=== PATIENT | male | born 1955 | race Caucasian/White ===

== ENCOUNTER 2023-08-11 05:47 | Day surgery (SDC) | payer MEDICARE, OTHER, SELFPAY ==
--- NOTE | 2023-08-10 07:30 | COLBX_PTH ---
PATIENT: REDD CARDONA LOC: EN U#:[id number] AGE/SX: 68/M ROOM: RE08/11/[address]: Dr. Radha Etienne MD : 1955 BED: DIS: 08/11/2023 SPEC #: [id number] RECD: 08/11/23 12:07 STATUS: TRACY LISSY #: [id number] SABRA: 08/10/23 07:[address]: Radha Etienne DEPT: SURGICAL PATHOLOGY RECD BY: Suellen Sung ENTERED: 08/11/23 12:08 SP TYPE: COLON BX OTHR DR: Dr. Wilder Luna MD Tissues: A - Gastric mucous membrane B - Gastric mucous membrane C - COLON BIOPSY D - Cecum, NOS E - Rectum, NOS Procedures: Surgery Specimen Level IV HEADER OPERATION: Colonoscopy with biopsy, EGD with biopsy, polypectomy PRE-OP DIAGNOSIS: GERD, colon polyp TISSUE SUBMITTED: A - Gastric antrum biopsy, H. pylori and path, B - Gastric body polyp, H. pylori and path, C - Polyp ascending colon x3, D - Cecum polyp biopsy x2, E - Polyp rectum biopsy MICROSCOPIC DIAGNOSIS A. Gastric antrum, biopsy: Chronic gastritis. See comment. B. Gastric body, biopsy: Fundic gland polyp. See comment. C. Ascending colon polyp, biopsy: Fragments of tubular adenoma. D. Cecal polyp, biopsy: Fragments of tubular adenoma. E. Rectal polyp, biopsy: Polypoid fragment of benign colonic mucosa with acute and chronic inflammation. AM:ernesto 08/12/2023 COMMENT A & B. The results of immunohistochemistry for Helicobacter pylori will be reported separately ([id number]). MICROSCOPIC DESCRIPTION Slides are reviewed. GROSS DESCRIPTION A - Received in fixative is one container labeled with the patient's name and designated gastric antrum. The specimen consists of one irregular fragment of light rivers soft tissue that measures 0.6 x 0.2 x 0.1 cm. The specimen is totally submitted in one cassette. B - Received in fixative is one container labeled with the patient's name and designated gastric polyp. The specimen consists of a polypoid fragment of rivers tissue measuring 1.0 x 0.8 x 0.6 cm. The specimen is bisected and totally submitted in one cassette. C - Received in fixative is one container labeled with the patient's name and designated ascending colon polyp. The specimen consists of multiple irregular fragments of light rivers soft tissue that in aggregate measure 1.0 x 0.6 x 0.1 cm. The specimen is totally submitted in one cassette. D - Received in fixative is one container labeled with the patient's name and designated cecal polyp. The specimen consists of multiple irregular fragments of light rivers soft tissue that in aggregate measure 1.0 x 0.3 x 0.1 cm. The specimen is totally submitted in one cassette. E - Received in fixative is one container labeled with the patient's name and designated rectal polyp. The specimen consists of one irregular fragment of light rivers soft tissue that measures 0.3 x 0.3 x 0.1 cm. The specimen is totally submitted in one cassette. / AM:ernesto 08/11/2023 TC:2 CPT: 12897 x5
[2023-08-11] VITALS (7 sets, daily range): BP systolic 110–123; BP diastolic 81–94; PULSE 90–95; RESP 16; TEMP 36.3–36.9; O2SAT 88–100; BMI 29.0
[2023-08-11] MEDS: Lactated Ringers 1,000 ML 15 ML IV (06:21)
--- NOTE | 2023-08-11 07:13 | HP.PCM_ITS ---
HPI - General HPI Narrative REDD CARDONA, is a 68 M who presents for an EGD and colonoscopy. Patient states his left lower quadrant pain did improve after having the Carafate. Patient also states has not really been having dysphagia. On the Protonix. Patient has bowel movements every other day denies any blood. office visit 06/24/23 HPI HPI: 67-year-old male presents due to EGD and colonoscopy. Patient states he has been having some issues with dysphagia states mostly larger pills seem to get caught in his very proximal esophagus/oral pharyngeal area. Patient states he can have some issues with need to if he does not chew well. Patient states if something does get stuck he does need to typically vomit to get removed. Patient does take Protonix 40 mg p.o. daily for reflux?previous last year patient was on Prilosec but was not working as well as it used to. Patient states the burning in the esophagus is controlled with the Protonix currently. Patient had a modified barium swallow in November 2022 so there is a mild delay in esophageal emptying facilitated with warm liquid. No obstruction or stricture or dilatation was seen. Patient last EGD and colonoscopy was December 2021 he had a couple tubular adenomas recommend follow-up colonoscopy recommended in 1 year possibly due to piecemeal removal of one of them. EGD showed GERD, gastric polyps, hiatal hernia per report?biopsy of gastric polyp showed a fundic gland polyp. Patient also states he has had some issues of left lower quadrant pain. Patient had diverticulitis diagnosed about a month after his EGD and colonoscopy. Patient never had diverticulitis prior to that. Patient does state that he thinks he had a lot of corn prior to the diverticulitis. Patient was put on antibiotics per the ER at that time. Patient also states that he does have some Cipro on hand due to his prostate and urinary tract infection so when he does have occasional left lower quadrant pain he has been taking that for 1 to 2 days. Patient states that the left lower quadrant pain only lasts like 1 to 2 hours describes it more of a pressure which can happen off-and-on for 2 to 3 days and then it resolves. Patient's first diverticulitis was diagnosed with a CT abdomen pelvis in January 2022 at [place]. Patient states he has bowel about every 2 days. [facility] Medical History (Updated 08/07/23 @ 14:04 by Leticia Perez) Anxiety Arthritis BPH (benign prostatic hyperplasia) Colon polyps CPAP (continuous positive airway pressure) dependence Depression Dysphagia Gastric reflux High cholesterol History of diverticulitis Hypothyroid Injury of back LLQ abdominal pain Seasonal allergies Sleep apnea Thyroid disease Wears glasses Wears hearing aid Home Medications atorvastatin 40 mg tablet 40 mg PO DAILY 06/24/23 [History Last Taken Unknown] cetirizine 10 mg capsule (Zyrtec) 10 mg PO DAILY allergy symptoms 06/24/23 [History Last Taken Unknown] ciprofloxacin HCl 500 mg tablet 500 mg PO DAILY PRN URINE INFECTION 06/24/23 [History Last Taken Unknown] levothyroxine 88 mcg tablet (Synthroid) 88 mcg PO DAILY 06/24/23 [History Last Taken 08/11/23] pantoprazole 40 mg tablet,delayed release 40 mg PO DAILY 06/24/23 [History Last Taken Unknown] tamsulosin 0.4 mg capsule 0.4 mg PO BID 06/24/23 [History Last Taken Unknown] Allergy/AdvReac Type Severity Reaction Status Date / Time wool Allergy Severe Rash Verified 08/11/23 06:15 Surgical History (Updated 06/24/23 @ 09:11 by Lennie Amor) History of back surgery S/P trigger finger release Social History (Updated 06/24/23 @ 09:12 by Lennie Amor) Smoking Status: Never smoker alcohol intake: never Past Medical/Surgical History Planned Operation Planned Operative Procedure/s: COLONOSCOPY/EGD Previous Hospitalizations/Surgeries HX Hospitalizations: No Any Problems With Anesthesia: No You/Your Family Experience Fever (Hyperthermia) With Anes: No Cholinesterase deficiency: No Cardiovascular Hx Hypertension: No Respiratory Hx Sleep Apnea: No Hx Respiratory Tract Infection/Cold (presently): No Do You Snore Loudly (louder than talking or can be heard): No Do You Often Feel Tired/ Fatigued/ Sleepy Dring Daytime?: No Has Anyone Observed You Stop Breathing During Sleep?: No Result (for STOP score): Negative Smoking Status: Never smoker Neurological Does patient have nerve stimulator: No Miscellaneous Recent Exposure to Contagious Disease: No Allergies wool Allergy (Severe, Verified 08/11/23 06:15) Rash Discharge Is Pt Admitted From a Alf, or a [place] [facility]: No After D/C, Where Do you Plan to Go: Return Home Vital Signs Vital Signs Vital Signs: 08/11/23 06:19 08/11/23 06:19 Temperature 98 F Temperature Source Temporal Pulse Rate 95 Respiratory Rate 16 Respiratory Pattern Normal Blood Pressure 117/87 H Blood Pressure Mean 97 Blood Pressure Source Monitor Blood Pressure Position Semi-Fowlers Blood Pressure Location Right Arm Pulse Ox 95 Oxygen Delivery Method Room Air Weight Weight: 196 lb 3.382 oz Body Mass Index (BMI) 29.0 Physical Exam Const alert, oriented x3 and no apparent distress HEENT normocephalic and head/scalp atraumatic Resp normal respiratory effort Cardio regular rate GI soft to palpation and non-tender; Negative for non-distended Palpation: Negative for guarding Extremity no clubbing, cyanosis or edema Skin no rashes or lesions noted Neuro CN's II-XII intact bilaterally Psych mental status grossly normal Assessment & Plan Assessment/Plan (1) GERD (gastroesophageal reflux disease): (2) Colon polyps: Surgery Risks - Colonoscopy I discussed with the patient the risks of the procedure: Yes Risks Include but are not Limited To: Risks include but are not limited to: Bleeding, perforation requiring further surgery, inability to complete colonoscopy requiring barium enema.
--- NOTE | 2023-08-11 07:30 | IMM_PTH ---
PATIENT: REDD CARDONA LOC: EN U#:[id number] AGE/SX: 68/M ROOM: RE08/11/[address]: Dr. Radha Etienne MD : 1955 BED: DIS: 08/11/2023 SPEC #: [id number] RECD: 08/11/23 12:30 STATUS: TRACY REPool #: [id number] SABRA: 08/11/23 07:[address]: Radha Etienne DEPT: IMMUNOHISTOCHEMISTRY RECD BY: Laura Cueto ENTERED: 08/11/23 12:31 SP TYPE: IMMUNO OTHR DR: Dr. Wilder Luna MD Tissues: A - Stomach, NOS B - Stomach, NOS Procedures: H Pylori (initial) PHYSICIAN & [place] [id number] SPECIMEN INFORMATION: Tissue Source: A - Gastric antrum, B - Gastric body polyp Clinical Info: GERD, colon polyp Specimen Number: [id number] A & B CPT code: 48938 x2 METHODOLOGY: Deparaffinized sections of prefer/formalin-fixed tissue or PAP/DQ stained slides are incubated with monoclonal/polyclonal antibodies/oligonucleotide probes. Localization is made via biotin free immunoperoxidase method. Appropriate controls are performed and reacted as expected. Results on target cell population are indicated in the following table: RESULTS: ANTIBODY / CLONE RESULT Block A H Pylori (polyclonal) negative Block B H Pylori (polyclonal) negative These tests were developed and their performance characteristics determined by [facility]. They may not have been cleared or approved by the U.S. Food and Drug Administration. The FDA has determined that such clearance or approval is not necessary. The above immunohistochemical/dualISH markers are ordered and reviewed by the Pathologist. INTERPRETATION: A. Gastric antrum, biopsy: Negative for Helicobacter pylori organisms. B. Gastric body polyp, biopsy: Negative for Helicobacter pylori organisms. AM:ernesto 08/12/2023
--- NOTE | 2023-08-11 08:32 | OP.EGD_ITS ---
Patient Name: Toro Gleason Procedure Date: 08/11/2023 7:34 AM Date of : 1955 Age: 68 Procedure: Upper GI endoscopy Indications: Heartburn Providers: Radha Etienne MD Medicines: Monitored Anesthesia Care Patient Profile: This is a 68 year old male. Complications: No immediate complications. Procedure: Pre-Anesthesia Assessment: - Prior to the procedure, a History and Physical was performed, and patient medications and allergies were reviewed. The patient's tolerance of previous anesthesia was also reviewed. The risks and benefits of the procedure and the sedation options and risks were discussed with the patient. All questions were answered, and informed consent was obtained. Prior Anticoagulants: The patient has taken no anticoagulant or antiplatelet agents. ASA Grade Assessment: Per anesthesia. After reviewing the risks and benefits, the patient was deemed in satisfactory condition to undergo the procedure. After obtaining informed consent, the endoscope was passed under direct vision. Throughout the procedure, the patient's blood pressure, pulse, and oxygen saturations were monitored continuously. The Colonoscope was introduced through the mouth, and advanced to the second part of duodenum. The upper GI endoscopy was accomplished without difficulty. The patient tolerated the procedure well. Scope In: 7:40:40 AM Scope Out: 7:51:10 AM Total Procedure Duration Time 0 hours 10 minutes 30 seconds Findings: The Z-line was variable and was found 40 cm from the incisors. Striped mildly erythematous mucosa without bleeding was found in the gastric antrum. The examined duodenum was normal. A few 5 mm semi-pedunculated polyps with no bleeding and no stigmata of recent bleeding were found in the gastric body. The polyp was removed with a hot snare. Resection and retrieval were complete. Impression: - Z-line variable, 40 cm from the incisors. - Erythematous mucosa in the antrum. - Normal examined duodenum. - A few gastric polyps. Resected and retrieved. Recommendation: - Await pathology results. - Discharge patient to home (ambulatory). - Resume previous diet. - Continue present medications. Procedure Code(s): --- Professional --- 21814, Esophagogastroduodenoscopy, flexible, transoral; with removal of tumor(s), polyp(s), or other lesion(s) by snare technique Diagnosis Code(s): --- Professional --- K22.89, Other specified disease of esophagus K31.89, Other diseases of stomach and duodenum K31.7, Polyp of stomach and duodenum R12, Heartburn CPT copyright 2021 [employer]. All rights reserved. The codes documented in this report are preliminary and upon boat finisher review may be revised to meet current compliance requirements. MD Radha Mcclelland MD 08/11/2023 8:32:17 AM This report has been signed electronically. Number of Addenda: 0 Note Initiated On: 08/11/2023 7:34 AM
--- NOTE | 2023-08-11 08:32 | OP.CCLET_ITS ---
08/11/2023 Wilder Luna Re : Upper GI endoscopy procedure for Toro Wren Jeremy This procedure was performed on Friday, August 11, 2023. My impressions and recommendations are as follows: Impressions : - Z-line variable, 40 cm from the incisors. - Erythematous mucosa in the antrum. - Normal examined duodenum. - A few gastric polyps. Resected and retrieved. Recommendations : - Await pathology results. - Discharge patient to home (ambulatory). - Resume previous diet. - Continue present medications. My findings are described in the full procedure note, which is enclosed. If I can be of further assistance, please feel free to contact me at Doctor phone number(s): , Work: . Sincerely, MD Radha Mcclelland MD 08/11/2023 8:32:17 AM This report has been signed electronically.
--- NOTE | 2023-08-11 08:37 | OP.COLON_ITS ---
Patient Name: Toro Gleason Procedure Date: 08/11/2023 7:51 AM Date of : 1955 Age: 68 Procedure: Colonoscopy Indications: High risk colon cancer surveillance: Personal history of colonic polyps Providers: Radha Etienne MD Medicines: Monitored Anesthesia Care Patient Profile: This is a 68 year old male. Last Colonoscopy: December 2021. Complications: No immediate complications. Procedure: Pre-Anesthesia Assessment: - Prior to the procedure, a History and Physical was performed, and patient medications and allergies were reviewed. The patient's tolerance of previous anesthesia was also reviewed. The risks and benefits of the procedure and the sedation options and risks were discussed with the patient. All questions were answered, and informed consent was obtained. Prior Anticoagulants: The patient has taken no anticoagulant or antiplatelet agents. ASA Grade Assessment: Per anesthesia. After reviewing the risks and benefits, the patient was deemed in satisfactory condition to undergo the procedure. After I obtained informed consent, the scope was passed under direct vision. Throughout the procedure, the patient's blood pressure, pulse, and oxygen saturations were monitored continuously. The Colonoscope was introduced through the anus and advanced to the cecum, identified by the appendiceal orifice, ileocecal valve and palpation. The quality of the bowel preparation was good. Scope In: 7:52:41 AM Scope Withdrawal Time 0 hours 14 minutes 58 seconds Scope Out: 8:25:52 AM Total Procedure Duration Time 0 hours 33 minutes 11 seconds Findings: The perianal and digital rectal examinations were normal. A few small-mouthed diverticula were found in the sigmoid colon. Six sessile polyps were found in the rectum, ascending colon and cecum. The polyps were less than 5 mm in size. These polyps were removed with a cold biopsy forceps. Resection and retrieval were complete. The exam was otherwise without abnormality. Impression: - Diverticulosis in the sigmoid colon. - Six less than 5 mm polyps in the rectum, in the ascending colon and in the cecum, removed with a cold biopsy forceps. Resected and retrieved. - The examination was otherwise normal. Recommendation: - Discharge patient to home. - Resume previous diet. - Continue present medications. - Await pathology results. - Repeat colonoscopy in 2 years for surveillance based on pathology results. Procedure Code(s): --- Professional --- 90181, PT, Colonoscopy, flexible; with biopsy, single or multiple Diagnosis Code(s): --- Professional --- Z86.010, Personal history of colonic polyps D12.8, Benign neoplasm of rectum D12.2, Benign neoplasm of ascending colon D12.0, Benign neoplasm of cecum K57.30, Diverticulosis of large intestine without perforation or abscess without bleeding CPT copyright 2021 [place] [employer]. All rights reserved. The codes documented in this report are preliminary and upon cpc coder review may be revised to meet current compliance requirements. MD Radha Mcclelland MD 08/11/2023 8:36:25 AM This report has been signed electronically. Number of Addenda: 0 Note Initiated On: 08/11/2023 7:51 AM
--- NOTE | 2023-08-11 08:37 | OP.CCLET_ITS ---
08/11/2023 Wilder Luna Re : Colonoscopy procedure for Toro Bettsjose c Luna This procedure was performed on Friday, August 11, 2023. My impressions and recommendations are as follows: Impressions : - Diverticulosis in the sigmoid colon. - Six less than 5 mm polyps in the rectum, in the ascending colon and in the cecum, removed with a cold biopsy forceps. Resected and retrieved. - The examination was otherwise normal. Recommendations : - Discharge patient to home. - Resume previous diet. - Continue present medications. - Await pathology results. - Repeat colonoscopy in 2 years for surveillance based on pathology results. My findings are described in the full procedure note, which is enclosed. If I can be of further assistance, please feel free to contact me at Doctor phone number(s): , Work: . Sincerely, MD Radha Mcclelland MD 08/11/2023 8:36:25 AM This report has been signed electronically.
== END 2023-08-11 09:13 | disposition home or self-care (01) ==
LOC: EN 05:50 → AC 05:51
PROVIDERS: PCP Family Medicine; Referring Provider Family Medicine; Visit Provider Surgery
PROC: 0DJD8ZZ Inspection of Lower Intestinal Tract, Via Natural or Artificial Opening Endoscopic (ICD-10-PCS; CPT 45378; principal; 2023-08-11 07:25)
DX: K63.5 Polyp of colon (principal); Z12.11 Encounter for screening for malignant neoplasm of colon; K21.9 Gastro-esophageal reflux disease without esophagitis; K57.30 Diverticulosis of large intestine without perforation or abscess without bleeding; Z86.010 Personal history of colon polyps; K57.92 Diverticulitis of intestine, part unspecified, without perforation or abscess without bleeding; K62.1 Rectal polyp; K31.7 Polyp of stomach and duodenum; E78.00 Pure hypercholesterolemia, unspecified; Z79.899 Other long term (current) drug therapy; E03.9 Hypothyroidism, unspecified; N40.0 Benign prostatic hyperplasia without lower urinary tract symptoms; K22.89 Other specified disease of esophagus; K31.89 Other diseases of stomach and duodenum; K29.50 Unspecified chronic gastritis without bleeding
CPT/HCPCS: 45380; 43251; 88305; 88342; J7120; J2405

== ENCOUNTER → 2024-03-15 | Outpatient (CLI) | payer OTHER, SELFPAY ==
--- NOTE | 2024-03-15 18:23 | CT_ITS ---
STUDY: CT ABDOMEN AND PELVIS WITHOUT CONTRAST REASON FOR EXAM: Male, 68 years old. LOWER ABD PAIN RADIATION DOSAGE (If Supplied By Facility): CTDIvol = ( 16.74 ) mGy, DLP = ( 852.92 ) mGycm TECHNIQUE: Transaxial images were obtained from the dome of the diaphragm to the symphysis pubis without oral contrast, and without intravenous contrast. Sagittal and coronal images were reconstructed. Individualized dose optimization techniques were used for this CT. COMPARISON: None. FINDINGS: The visualized lung bases are unremarkable. The visualized portions of the heart are within normal limits. Normal liver. Normal gallbladder and extrahepatic biliary system. Normal spleen. Normal pancreas. Normal bilateral adrenal glands. Normal right kidney. Normal left kidney. The stomach is distended with food. Normal small intestine. There are multiple colonic diverticula consistent with diverticulosis. The appendix is visualized and appears normal. There is scattered atherosclerotic calcification of the abdominal aorta, without a demonstrated aneurysm. Normal inferior vena cava. Normal retroperitoneum. Normal urinary bladder. There are prostatic calcifications. Small bilateral inguinal hernias containing fat. There are mild degenerative changes of the visualized lumbar spine. Schmorl''s node along the superior endplate of the [id number]. CT/Abdomen/Pelvis without Cont IMPRESSION: Sigmoid diverticulosis. Small bilateral inguinal hernias containing fat. Electronically Signed: Ilir Ferraro MD at 15:20 EDT ,
== END | disposition home or self-care (01) ==
LOC: CT 18:21
PROVIDERS: PCP Family Medicine; Referring Provider Internal Medicine; Visit Provider Internal Medicine
DX: K40.90 Unilateral inguinal hernia, without obstruction or gangrene, not specified as recurrent (principal)
CPT/HCPCS: 74176

== ENCOUNTER 2024-05-27 13:54 | Outpatient (CLI) | payer MEDICARE, OTHER, SELFPAY ==
--- NOTE | 2024-05-31 06:46 | EKG12_ITS ---
Test Reason : PRE OP Blood Pressure : / mmHG Vent. Rate : 067 BPM Atrial Rate : 067 BPM P-R Int : 140 ms QRS Dur : 086 ms QT Int : 416 ms P-R-T Axes : 005 -35 036 degrees QTc Int : 439 ms Normal sinus rhythm Left axis deviation Abnormal ECG Confirmed by MARCELLA TSE, SHILA ([id number]), editor farm journal HALINA PURCELL ([id number]) on 06/01/2024 1:17:45 PM Referred By: Robert James Confirmed By:SHILA NARANJO MD
[2024-05-31 07:42] LABS: Absolute Lymphocyte Count 3.57 X10^3/uL (0.83-4.51); Absolute Neutrophil Count 4.7 X10^3/uL (2.0-7.7); Basophil# 0.04 X10^3/uL; Basophil% 0.4 % (0-1); Eosinophils% 2.1 % (0-5); Hematocrit 46.4 % (40-54); Hemoglobin 15.1 g/dL (13.0-16.5); Lymphocyte # 3.57 X10^3/ul (0.83-4.51); Lymphocyte % 38.3 % (19-41); Mean Corp Hgb Conc 32.5 g/dL (32-36); Mean Corpuscular Hgb 32.7 pg (27.0-32.0); Mean Corpuscular Volume 100.4 fL (80-94); Mean Platelet Vol. 9.8 fl (6.2-12.0); Monocyte# 0.78 X10^3/uL; Monocyte% 8.4 % (0-10); NRBC Flagged by Analyzer 0 % (0-5); Neutrophil # 4.68 X10^3/uL (2.7-7.7); Neutrophil % 50.3 % (47-70); Platelet Count 256 K/mm3 (150-450); RBC Distribution Width CV 12.8 % (11.6-14.6); RBC Distribution Width SD 47.2 fl (35.1-43.9); Red Blood Count 4.62 M/mm3 (4.6-6.2); White Blood Count 9.3 K/mm3 (4.4-11.0)
[2024-05-31 08:13] LABS: Anion Gap 5 (5-15); BUN 19 mg/dL (7-18); BUN/Creat Ratio 19.8 RATIO (10-20); Calcium,Total 9.4 mg/dL (8.5-10.1); Chloride 105 mmol/L (98-107); Creatinine, Serum 0.96 mg/dL (0.70-1.30); EST Glomerular Filtration Rate 83 mL/min (>60); Est Glom Filt Rate - Afr Amer 101 mL/min (>60); Glucose 102 mg/dL (74-106); Magnesium 2.2 mg/dL (1.6-2.6); Sodium Level 141 mmol/L (136-145)
== END 2024-05-27 23:00 | disposition home or self-care (01) ==
LOC: SDC 11-23 13:54
PROVIDERS: PCP Family Medicine; Referring Provider Specialist; Visit Provider Specialist
DX: Z01.818 Encounter for other preprocedural examination (principal); Z53.9 Procedure and treatment not carried out, unspecified reason
CPT/HCPCS: 36415; 80048; 83036; 83735; 85025; 87077; 87081; 93005

== ENCOUNTER → 2024-05-31 | Outpatient (CLI) | payer MEDICARE, OTHER, SELFPAY ==
--- NOTE | 2024-05-31 06:48 | CT_ITS ---
PROCEDURE: CT RIGHT KNEE WITHOUT CONTRAST REASON FOR EXAM: Male, 68 years old. Preoperative planning for the [employer] Robotic knee surgery. Knee pain. TECHNIQUE: Transaxial CT of the hip, knee and ankle were obtained. Coronal and sagittal reconstruction images of the knee were provided. Individualized dose optimization techniques were used for this CT. COMPARISON: None. FINDINGS: Standard protocol for the preoperative planning for the M[employer] robotic knee surgery was performed. There is mild arthrosis of the hip, mild tricompartmental arthrosis of the knee and mild arthrosis of the tibiotalar and subtalar joints. CT/Extremity Lower without Contra IMPRESSION: Preoperative M[employer] Robotic knee surgical CT evaluation with findings as described above. Electronically Signed: Rc Isaacs MD at 9:28 EDT ,
== END | disposition home or self-care (01) ==
PROVIDERS: PCP Family Medicine; Referring Provider Specialist; Visit Provider Specialist
DX: M17.11 Unilateral primary osteoarthritis, right knee (principal); S83.91XA Sprain of unspecified site of right knee, initial encounter
CPT/HCPCS: 73700

== ENCOUNTER → 2024-06-30 | Outpatient (CLI) | payer MEDICARE, OTHER, SELFPAY ==
--- NOTE | 2024-06-30 14:10 | RAD_ITS ---
STUDY: X-RAY - LEFT HAND REASON FOR EXAM: Male, 68 years old. Pain after animal bite TECHNIQUE: 3 view(s) of the hand. COMPARISON: None. FINDINGS: Normal radiocarpal articulation. Normal distal radioulnar joint. Normal visualized carpal bones. Normal carpal articulations Normal carpometacarpal articulation of the thumb. Normal second through fifth carpometacarpal joints. Normal metacarpi. Normal metacarpophalangeal joint of the thumb. Normal interphalangeal joint of the thumb. Normal proximal and distal phalanges of the thumb. Normal metacarpophalangeal joints of the second through fifth fingers. Normal proximal and distal interphalangeal joints of the second through fifth fingers. Normal phalanges of the second through fifth fingers. No suspicious soft tissue swelling, foreign body, or subcutaneous emphysema RAD/Hand Min 3 Views IMPRESSION: Normal x-ray examination of the hand. Electronically Signed: Tank Arriaga MD at 14:25 EDT ,
--- NOTE | 2024-06-30 15:50 | CT_ITS ---
EXAM: CT LEFT UPPER EXTREMITY WITH INTRAVENOUS CONTRAST CLINICAL INDICATION: R/O BONE INFX/DEEP TISSUE ABSCESS TECHNIQUE: Helically acquired images were obtained of the left upper extremity with intravenous contrast. 2-D reformats were performed by the technologist. This CT exam was performed using one or more of the following dose reduction techniques: automated exposure control, adjustment of the mA and/or kV according to patient size, and/or use of iterative reconstruction technique. CONTRAST: IV 100mL Isovue-370 COMPARISON: No relevant prior studies available. FINDINGS: BONES/JOINTS: There are no osseous abnormalities. No acute fracture. No subluxation. Normal alignment. Preservation of the joint space. No sclerotic or destructive changes. SOFT TISSUES: There is edema and inflammation in the subcutaneous tissues of the hypothenar eminence. There is no abscess or fluid collection identified. No radiopaque foreign body. CT/Extremity Upper WITH Contrast IMPRESSION: Edema and inflammation in the subcutaneous tissues of the hypothenar eminence which may represent cellulitis. There is no abscess or fluid collection identified. There are no osseous abnormalities. If indicated further evaluation with MRI may be beneficial. Electronically Signed: Theo Crews MD at 17:27 EDT ,
== END | disposition home or self-care (01) ==
PROVIDERS: PCP Family Medicine; Referring Provider Surgery Plastic and Reconstructive Surgery; Visit Provider Surgery Plastic and Reconstructive Surgery
DX: S61.452A Open bite of left hand, initial encounter (principal); W54.0XXA Bitten by dog, initial encounter
CPT/HCPCS: 73130; 73201; Q9967

== ENCOUNTER → 2025-08-15 | Outpatient (CLI) | payer MEDICARE, OTHER, SELFPAY ==
[2025-08-15 15:56] LABS: PSA,Total- Diagnostic 2.35 ng/mL (0.00-4.00)
== END | disposition home or self-care (01) ==
LOC: LAB 14:31
PROVIDERS: PCP Family Medicine; Referring Provider Nurse Practitioner; Visit Provider Nurse Practitioner
DX: C61 Malignant neoplasm of prostate (principal)
CPT/HCPCS: 36415; 84153

== ENCOUNTER 2025-09-08 09:04 | Day surgery (SDC) | payer OTHER, SELFPAY ==
[2025-09-08] VITALS (8 sets, daily range): BP systolic 93–138; BP diastolic 60–86; PULSE 65–84; RESP 16–18; TEMP 36.1–36.6; O2SAT 92–100; BMI 29.2
[2025-09-08] MEDS: Lactated Ringers 1,000 ML 15 ML IV (09:30)
--- NOTE | 2025-09-08 09:44 | PRE.ANES_ITS ---
ASA Classification* ASA Classification ASA Classification: 3 Assessment & Plan Anesthesia* Anesthesia Assessment Anesthesia Assessment: Discussed sedation and/or anesthesia options, risks, benefits, and alternatives with patient/parents/legal guardian/POA. Questions invited. The patient/parents/legal guardian/POA seems to understand and agrees to proceed with anesthesia plan. Reviewed the physical assessment, medical history, allergy history and patient home medications list prior to surgery/procedure/anesthetic and documented any changes. Performed airway and anesthesia risk assessments. Anesthesia Type Anesthesia Type: MAC History Source History Obtained from:: Patient and Chart Anesthesia Focused Assessment* Temperature: 97.4 F Pulse Rate: 80 Blood Pressure: 138/86 Respiratory Rate: 16 Pulse Ox: 96 Oxygen Delivery Method: Room Air Airway Assessment Mouth opens: 2 cm Mallampati Score: IV Teeth Condition: Missing (Patient has a missing right molar. Rest of the teeth are tight.) and Upper (Patient has an upper bridge. It is tight.) Neck Range of motion (ROM): Limited ROM (Severe Restriction) Labs Anesthesia Preop lab: CBC WBC, (4.4-11.0) 9.3 K/mm3 05/31/24, 06:41 RBC, (4.6-6.2) 4.62 M/mm3 05/31/24, 06:41 Hgb, (13.0-16.5) 15.1 g/dL 05/31/24, 06:41 Hct, (40-54) 46.4 % 05/31/24, 06:41 Plt Count, (150-450) 256 K/mm3 05/31/24, 06:41 CHEMISTRY Potassium, (3.5-5.1) 4.0 mmol/L 05/31/24, 06:41 Sodium, (136-145) 141 mmol/L 05/31/24, 06:41 Magnesium, (1.6-2.6) 2.2 mg/dL 05/31/24, 06:41 BUN, (7-18) 19 mg/dL H 05/31/24, 06:41 Creatinine, (0.70-1.30) 0.96 mg/dL 05/31/24, 06:41 Glucose, (74-106) 102 mg/dL 05/31/24, 06:41 COAG Pre-Assessment Diagnosis/Proposed Procedure Planned Operative Procedure(s): EGD/CSCOPE Anesthesia History Anesthesia History - manager maintenance: Anesthesia History - manager maintenance Hx Hospitalization No 09/06/25 12:12 Any Problems With Anesthesia No 09/06/25 12:12 Cholinesterase deficiency No 09/06/25 12:12 You/Your Family Experience No 09/06/25 12:12 fever (hyperthermia) with Relationship Recent Exposure to Contagious No 09/08/25 09:28 Disease Does patient have nerve No 09/06/25 12:12 stimulator Patient instructed to have device shut off --Does patient have Pacemaker No 09/08/25 09:28 or ICD? When Was Last Pacemaker Check QUESTION #4 FULL TEXT: You/Your Family Experience fever (hyperthermia) with Anesthesia Last Oral Intake Last Oral intake: Last Oral Intake NPO since 06:30 09/08/25 09:28 Meds taken in AM with sips of water? Meds patient instructed to take am of surgery Any additional information?: Yes NPO since: 06:30 (water at 6:30am) Meds taken in AM with sips of water?: Yes PONV PONV - manager maintenance: PONV - manager maintenance Female Yes 09/06/25 12:12 HX of Motion Sickness No 09/06/25 12:12 HX of N/V After Surgery No 09/06/25 12:12 Non-Smoker Yes 09/06/25 12:12 Duration of Surgery greater No 09/06/25 12:12 than 60 minutes Number of Risk Factors 2 09/06/25 12:12 PONV Score Moderate Risk 09/06/25 12:12 Height & Weight Height & Weight: Anesthesia: Height & Weight Height 5 ft 9 in 09/08/25 09:28 Weight: 89.811 kg 09/08/25 09:28 Body Mass Index (BMI) 29.2 09/08/25 09:28 Respiratory Assessment Respiratory Assessment - manager maintenance: Respiratory Tract Infection Hx - manager maintenance Hx Respiratory Tract Infection No 09/06/25 12:12 STOP Sleep Apnea STOP Sleep Apnea - manager maintenance: STOP Sleep Apnea - manager maintenance Hx Hypertension No 09/06/25 12:12 Hx Sleep Apnea Yes 09/06/25 12:12 CPAP Yes 09/06/25 12:12 BIPAP No 09/06/25 12:12 Do you snore loudly (louder than talking or can be heard Do you often feel tired/ fatigued/ sleepy during daytime? Has anyone observed you stop breathing during sleep? STOP Results Positive 09/06/25 12:12 QUESTION #5 FULL TEXT : Do you snore loudly (louder than talking or can be heard through closed doors)? 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 Specify any problems Hx of Preganancy in last 3 N/A 09/06/25 12:12 Months Nurse Filling Out Transfusion DSCHRIBER 09/06/25 12:12 & Questions: Date: 09/06/25 09/06/25 12:12 Time: 12:15 09/06/25 12:12 Patient unable to answer at this time (ie. confused, unrespo /Reproduction History /Reproductive History - manager maintenance: /Reproductive Hx- manager maintenance Hx Now No 09/06/25 12:12 Gestational Age (in weeks): EDC: Hx Hx Para Hx Section SAB No 09/06/25 12:12 Does the father of the baby or his family experience fever w Father of the baby Malignant Hypertension history comment Active Medications Active Medications: Current Medications Generic Name Dose Route Start Last Admin Trade Name Freq PRN Reason Stop Dose Admin Lactated Ringer's 1,000 mls @ 15 mls/hr 09/08/25 09:30 09/08/25 09:30 IV 15 mls/hr .Q48H GLADYS Administration PFSH Medical History Anxiety Diabetes Arthritis Back pain Migraine headache Hx of fracture of arm Loss of consciousness Difficulty swallowing History of IBS History of pain when walking History of edema Non-smoker Wears hearing aid Wears glasses Thyroid disease Injury of back History of diverticulitis Gastric reflux CPAP (continuous positive airway pressure) dependence BPH (benign prostatic hyperplasia) High cholesterol Home Medications ?Medication ?Instructions ?Recorded ?Last Taken ?Type atorvastatin 40 mg tablet 40 mg PO DAILY 06/24/23 Unkn own History cetirizine 10 mg capsule (Zyrtec) 10 mg PO DAILY aller gy symptoms 06/24/23 Unknown History levothyroxine 88 mcg tablet 88 mcg PO DAILY 06/24/23 1 11/09/24 History (Synthroid) tamsulosin 0.4 mg capsule 0.4 mg PO QHS 06/24/23 Unkno wn History multivitamin 1 tab PO QAM 08/01/25 Unknow n History omeprazole 40 mg capsule,delayed 40 mg PO QDAY #30 cap s 08/01/25 09/08/25 Rx release amoxicillin 500 mg capsule 2,000 mg PO PRN PRN PRIOR T O 09/06/25 Unknown History PROCEDURE azelastine 137 mcg (0.1 %) nasal 1 spray intranasal Q1 2H PRN ALLERGY 09/06/25 Unknown History spray cholecalciferol (vitamin D3) 50 50 mcg PO DAILY Unknown History mcg (2,000 unit) capsule (Vitamin D3) famotidine 20 mg tablet (Acid 20 mg PO QHS 09/06/25 Un known History Controller) ketoconazole 2 % shampoo 1 applic topical Q14D PRN EX CEMA 09/06/25 Unknown History Allergy/AdvReac Type Severity Reaction Status Date / Time wool Allergy Severe Rash Verified 09/08/25 09:28 latex Allergy Intermediate Rash Verified 09/08/25 09:28 adhesive tape AdvReac Intermediate Rash Verified 09/08/25 09:28 Iodinated Contrast Media AdvReac Nausea Verified 09/08/25 09:28 Family History Mother Diabetes Sister Breast cancer Father Cancer leukemia Surgical History Hx of prostate biopsy Hx of colonoscopy with polypectomy Hx of total knee arthroplasty History of back surgery S/P trigger finger release Social History Smoking Status: Never smoker alcohol intake: never additional social history: denies vaping, denies marijuana, denies edibles, denies aspirin use, denies ibuprofen, denies any blood clotting issues Review of Systems (Anesthesia) ROS Narrative System reviewed and no additional complaints, except as documented.
--- NOTE | 2025-09-08 10:27 | H&P.OPEN ---
HPI - General General Date of Service: 09/08/25 HPI Narrative REDD CARDONA, is a 70 M who presents for an EGD and colonoscopy due to reflux and recent diverticulitis. Patient states his reflux is better on the omeprazole and Pepcid. Office visit 08/01/2025 HPI HPI: 78-year-old male presents for colonoscopy due to recent diverticulitis/left lower quadrant pain. Patient is also complaining of episodes of nausea and bloating and abdominal cramping and diarrhea typically after eating. Patient is currently on Protonix for his reflux. Patient's last colonoscopy was in July 2023 recommended follow-up colonoscopy in 3 years due to tubular adenomas. [facility] Medical History Anxiety Diabetes Arthritis Back pain Migraine headache Hx of fracture of arm Loss of consciousness Difficulty swallowing History of IBS History of pain when walking History of edema Non-smoker Wears hearing aid Wears glasses Thyroid disease Injury of back History of diverticulitis Gastric reflux CPAP (continuous positive airway pressure) dependence BPH (benign prostatic hyperplasia) High cholesterol Home Medications ?Medication ?Instructions ?Recorded ?Last Taken ?Type atorvastatin 40 mg tablet 40 mg PO DAILY 06/24/23 Unknown History cetirizine 10 mg capsule (Zyrtec) 10 mg PO DAILY allergy symptoms 06/24/23 Unknown History levothyroxine 88 mcg tablet 88 mcg PO DAILY 06/24/23 09/08/25 History (Synthroid) tamsulosin 0.4 mg capsule 0.4 mg PO QHS 06/24/23 Unknown History multivitamin 1 tab PO QAM 08/01/25 Unknown History omeprazole 40 mg capsule,delayed 40 mg PO QDAY #30 caps 08/01/25 09/08/25 Rx release amoxicillin 500 mg capsule 2,000 mg PO PRN PRN PRIOR TO 09/06/25 Unknown History PROCEDURE azelastine 137 mcg (0.1 %) nasal 1 spray intranasal Q12H PRN ALLERGY 09/06/25 Unknown History spray cholecalciferol (vitamin D3) 50 50 mcg PO DAILY 09/06/25 Unknown History mcg (2,000 unit) capsule (Vitamin D3) famotidine 20 mg tablet (Acid 20 mg PO QHS 09/06/25 Unknown History Controller) ketoconazole 2 % shampoo 1 applic topical Q14D PRN EXCEMA 09/06/25 Unknown History Allergy/AdvReac Type Severity Reaction Status Date / Time wool Allergy Severe Rash Verified 09/08/25 09:28 latex Allergy Intermediate Rash Verified 09/08/25 09:28 adhesive tape AdvReac Intermediate Rash Verified 09/08/25 09:28 Iodinated Contrast Media AdvReac Nausea Verified 09/08/25 09:28 Family History Mother Diabetes Sister Breast cancer Father Cancer leukemia Surgical History Hx of prostate biopsy Hx of colonoscopy with polypectomy Hx of total knee arthroplasty History of back surgery S/P trigger finger release Social History Smoking Status: Never smoker alcohol intake: never additional social history: denies vaping, denies marijuana, denies edibles, denies aspirin use, denies ibuprofen, denies any blood clotting issues Past Medical/Surgical History Planned Operation Planned Operative Procedure(s): EGD/CSCOPE Previous Hospitalizations/Surgeries HX Hospitalizations: No Any Problems With Anesthesia: No You/Your Family Experience Fever (Hyperthermia) With Anes: No Cholinesterase deficiency: No Cardiovascular Hx Hypertension: No Respiratory Hx Sleep Apnea: Yes CPAP: Yes BIPAP: No Hx Respiratory Tract Infection/Cold (presently): No Result (for STOP score): Positive Smoking Status: Never smoker Neurological Does patient have nerve stimulator: No Reproduction : No Miscellaneous Recent Exposure to Contagious Disease: No Allergies wool Allergy (Severe, Verified 09/08/25 09:28) Rash latex Allergy (Intermediate, Verified 09/08/25 09:28) Rash adhesive tape Adverse Reaction (Intermediate, Verified 09/08/25 09:28) Rash Iodinated Contrast Media Adverse Reaction (Verified 09/08/25 09:28) Nausea Discharge Is Pt Admitted From a Shelter, or a Intermediate: No After D/C, Where Do you Plan to Go: Return Home Vital Signs Vital Signs Vital Signs: 09/08/25 09:28 09/08/25 09:28 09/08/25 09:28 Temperature 97.4 F L Temperature Source Temporal Pulse Rate 80 Respiratory Rate 16 Respiratory Pattern Normal Blood Pressure 138/86 H Blood Pressure Mean 103 Blood Pressure Source Monitor Blood Pressure Position Semi-Fowlers Blood Pressure Location Left Arm Baseline BP 138/86 Pulse Ox 96 Oxygen Delivery Method Room Air 09/08/25 09:55 Temperature 97.4 F L Temperature Source Pulse Rate 80 Respiratory Rate 16 Respiratory Pattern Blood Pressure 138/86 H Blood Pressure Mean Blood Pressure Source Blood Pressure Position Blood Pressure Location Baseline BP Pulse Ox 96 Oxygen Delivery Method Room Air Weight Weight: 198 lb Body Mass Index (BMI) 29.2 Physical Exam Const alert, oriented x3 and no apparent distress HEENT normocephalic and head/scalp atraumatic Resp normal respiratory effort Cardio regular rate GI soft to palpation and non-tender; Negative for non-distended Palpation: Negative for guarding Extremity no clubbing, cyanosis or edema Skin no rashes or lesions noted Neuro CN's II-XII intact bilaterally Psych mental status grossly normal Assessment & Plan Assessment/Plan (1) Hx of diverticulitis of colon: (2) GERD (gastroesophageal reflux disease): Surgery Risks - Colonoscopy I discussed with the patient the risks of the procedure: Yes Risks Include but are not Limited To: Plan for EGD and colonoscopy risks include but are not limited to: Bleeding, perforation requiring further surgery, inability to complete colonoscopy requiring barium enema.
--- NOTE | 2025-09-08 10:30 | COLBX_PTH ---
PATIENT: REDD CARDONA LOC: EN U#:[id number] AGE/SX: 70/M ROOM: RE09/08/[address]: Dr. Radha Etienne MD : 1955 BED: DIS: 09/08/2025 SPEC #: [id number] RECD: 09/08/25 12:33 STATUS: TRACY REQ #: [id number] SABRA: 09/08/25 10:[address]: Radha Etienne DEPT: SURGICAL PATHOLOGY RECD BY: Jose Antonio Chang ENTERED: 09/08/25 14:17 SP TYPE: COLON BX OTHR DR: Dr. Wilder Luna MD Tissues: A - Gastric mucous membrane B - Ascending colon C - Rectum, NOS Procedures: Immunohistochemical Stains Surgery Specimen Level IV HEADER OPERATION: Colonoscopy with biopsy, EGD PRE-OP DIAGNOSIS: Diverticulitis / left lower quadrant pain, nausea / bloating and abdominal cramping and diarrhea TISSUE SUBMITTED: A- Antrum biopsy, B- Ascending colon polyp biopsy x4, C- Rectum polyp biopsy MICROSCOPIC DIAGNOSIS A. Stomach, body, biopsy: Antral mucosa with features of reactive gastropathy. IHC negative for H. pylori organisms. B. Colon, ascending, polyp, biopsy: Tubular adenoma (4 fragments). C. Rectum, polyp, biopsy: Hyperplastic polyp MICROSCOPIC DESCRIPTION Slides are reviewed. All matched controls reacted appropriately. These tests were developed and their performance characteristics determined by [facility]. They may not have been cleared or approved by the U.S. Food and Drug Administration. The FDA has determined that such clearance or approval is not necessary. The above immunohistochemical markers are viewed by the Pathologist. GROSS DESCRIPTION A. Received in fixative is one container labeled with the patient's name and designated Antrum biopsy. The specimen consists of one irregular fragment of rivers tissue that measures 0.4 cm. The specimen is totally submitted in one cassette. B. Received in fixative is one container labeled with the patient's name and designated Ascending colon polyp biopsy x4. The specimen consists of multiple irregular fragments of rivers tissue that in aggregate measure 1.4 x 0.7 x 0.2 cm, admixed with flocculent material. The specimen is totally submitted in one cassette. C. Received in fixative is one container labeled with the patient's name and designated Rectum polyp biopsy. The specimen consists of one irregular fragment of rivers tissue that measures 0.3 cm. The specimen is totally submitted in one cassette. SD 09/08/2025 CPT:91921k3 ,[id number]
[2025-09-08] MEDS: Lidocaine 1% (5 ml sdv) 5 ML Vial IV (11:26)
--- NOTE | 2025-09-08 12:08 | PCM.POST.ANE ---
Anesthesia: Postop Eval I Current Vital Signs Temperature: 98 F Pulse Rate: 71 Blood Pressure: 93/60 Respiratory Rate: 18 Pulse Ox: 98 Oxygen Delivery Method: Room Air Assessment Airway patent: Yes Spontaneous unlabored respirations: Yes Mental status: Awake and Calm nausea: No Vomiting: No Anesthesia Complication: No Fluid Hydration Crystalloid volume administer (ml): 600 Total IV fluid infused: 600 Progress Note Anesthesia document: Postop Eval 1 completed: Yes
--- NOTE | 2025-09-08 12:16 | OP.EGD_ITS ---
Patient Name: Toro Gleason Procedure Date: 09/08/2025 11:18 AM Date of : 1955 Age: 70 Procedure: Upper GI endoscopy Indications: Heartburn Providers: Radha Etienne MD Referring MD: Wilder Luna Medicines: Monitored Anesthesia Care Patient Profile: This is a 70 year old male. Refer to note in patient chart for documentation of history and physical. Patient has symptoms. Complications: No immediate complications. Procedure: Pre-Anesthesia Assessment: - Prior to the procedure, a History and Physical was performed, and patient medications and allergies were reviewed. The patient's tolerance of previous anesthesia was also reviewed. The risks and benefits of the procedure and the sedation options and risks were discussed with the patient. All questions were answered, and informed consent was obtained. Prior Anticoagulants: The patient has taken no anticoagulant or antiplatelet agents. ASA Grade Assessment: Per anesthesia. After reviewing the risks and benefits, the patient was deemed in satisfactory condition to undergo the procedure. After obtaining informed consent, the endoscope was passed under direct vision. Throughout the procedure, the patient's blood pressure, pulse, and oxygen saturations were monitored continuously. The Colonoscope was introduced through the mouth, and advanced to the second part of duodenum. The upper GI endoscopy was accomplished without difficulty. The patient tolerated the procedure well. Scope In: 11:33:03 AM Scope Out: 11:36:54 AM Total Procedure Duration Time 0 hours 3 minutes 51 seconds Findings: The Z-line was variable and was found 39 cm from the incisors. Mildly erythematous mucosa without bleeding was found in the gastric antrum. Biopsies were taken with a cold forceps for histology. Biopsies were taken with a cold forceps for Helicobacter pylori cultures. The examined duodenum was normal. The cardia and gastric fundus were normal on retroflexion. Impression: - Z-line variable, 39 cm from the incisors. - Erythematous mucosa in the antrum. Biopsied. - Normal examined duodenum. Recommendation: - Await pathology results. - Discharge patient to home. - Resume previous diet. - Continue present medications. Procedure Code(s): --- Professional --- 08896, Esophagogastroduodenoscopy, flexible, transoral; with biopsy, single or multiple Diagnosis Code(s): --- Professional --- K22.89, Other specified disease of esophagus K31.89, Other diseases of stomach and duodenum R12, Heartburn CPT copyright 2021 [employer]. All rights reserved. The codes documented in this report are preliminary and upon car salter review may be revised to meet current compliance requirements. MD Radha Mcclelland MD 09/08/2025 12:15:58 PM This report has been signed electronically. Number of Addenda: 0 Note Initiated On: 09/08/2025 11:18 AM
--- NOTE | 2025-09-08 12:16 | OP.PROVAT_ITS ---
09/08/2025 Wilder Luna Re : Upper GI endoscopy procedure for Toro Wren Jeremy This procedure was performed on Monday, September 08, 2025. My impressions and recommendations are as follows: Impressions : - Z-line variable, 39 cm from the incisors. - Erythematous mucosa in the antrum. Biopsied. - Normal examined duodenum. Recommendations : - Await pathology results. - Discharge patient to home. - Resume previous diet. - Continue present medications. My findings are described in the full procedure note, which is enclosed. If I can be of further assistance, please feel free to contact me at Doctor phone number(s): , Work: . Sincerely, MD Radha Mcclelland MD 09/08/2025 12:15:58 PM This report has been signed electronically.
--- NOTE | 2025-09-08 12:22 | OP.PROVAT_ITS ---
09/08/2025 Wilder Luna Re : Colonoscopy procedure for Toro Wren Jeremy This procedure was performed on Monday, September 08, 2025. My impressions and recommendations are as follows: Impressions : - Five less than 5 mm polyps in the rectum and in the ascending colon, removed with a cold biopsy forceps. Resected and retrieved. - Diverticulosis in the sigmoid colon. - The examination was otherwise normal on direct and retroflexion views. Recommendations : - Discharge patient to home. - High fiber diet. - Continue present medications. - Await pathology results. - Repeat colonoscopy in 3 years for surveillance based on pathology results. My findings are described in the full procedure note, which is enclosed. If I can be of further assistance, please feel free to contact me at Doctor phone number(s): , Work: . Sincerely, MD Radha Mcclelland MD 09/08/2025 12:21:52 PM This report has been signed electronically.
--- NOTE | 2025-09-08 12:22 | OP.COLON_ITS ---
Patient Name: Toro Gleason Procedure Date: 09/08/2025 11:37 AM Date of : 1955 Age: 70 Procedure: Colonoscopy Indications: Follow-up of diverticulitis Providers: Radha Etienne MD Referring MD: Wilder Luna Medicines: Monitored Anesthesia Care Patient Profile: This is a 70 year old male. Refer to note in patient chart for documentation of history and physical. Patient has symptoms. Last Colonoscopy: 2022. Complications: No immediate complications. Procedure: Pre-Anesthesia Assessment: - Prior to the procedure, a History and Physical was performed, and patient medications and allergies were reviewed. The patient's tolerance of previous anesthesia was also reviewed. The risks and benefits of the procedure and the sedation options and risks were discussed with the patient. All questions were answered, and informed consent was obtained. Prior Anticoagulants: The patient has taken no anticoagulant or antiplatelet agents. ASA Grade Assessment: Per anesthesia. After reviewing the risks and benefits, the patient was deemed in satisfactory condition to undergo the procedure. After I obtained informed consent, the scope was passed under direct vision. Throughout the procedure, the patient's blood pressure, pulse, and oxygen saturations were monitored continuously. The Colonoscope was introduced through the anus and advanced to the cecum, identified by appendiceal orifice and ileocecal valve. The colonoscopy was performed without difficulty. The patient tolerated the procedure well. The quality of the bowel preparation was good. Scope In: 11:37:44 AM Scope Withdrawal Time 0 hours 17 minutes 57 seconds Scope Out: 12:06:39 PM Total Procedure Duration Time 0 hours 28 minutes 55 seconds Findings: The perianal and digital rectal examinations were normal. Five sessile polyps were found in the rectum and ascending colon. The polyps were less than 5 mm in size. These polyps were removed with a cold biopsy forceps. Resection and retrieval were complete. Multiple small-mouthed diverticula were found in the sigmoid colon. The exam was otherwise without abnormality on direct and retroflexion views. Impression: - Five less than 5 mm polyps in the rectum and in the ascending colon, removed with a cold biopsy forceps. Resected and retrieved. - Diverticulosis in the sigmoid colon. - The examination was otherwise normal on direct and retroflexion views. Recommendation: - Discharge patient to home. - High fiber diet. - Continue present medications. - Await pathology results. - Repeat colonoscopy in 3 years for surveillance based on pathology results. Procedure Code(s): --- Professional --- 33812, Colonoscopy, flexible; with biopsy, single or multiple Diagnosis Code(s): --- Professional --- D12.8, Benign neoplasm of rectum D12.2, Benign neoplasm of ascending colon K57.30, Diverticulosis of large intestine without perforation or abscess without bleeding CPT copyright 2021 [employer]. All rights reserved. The codes documented in this report are preliminary and upon kaiawhina kohanga reo review may be revised to meet current compliance requirements. MD Radha Mcclelland MD 09/08/2025 12:21:52 PM This report has been signed electronically. Number of Addenda: 0 Note Initiated On: 09/08/2025 11:37 AM
--- NOTE | 2025-09-08 20:29 | POSTOPAN2_ITS ---
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 Spontaneous unlabored Yes 09/08/25 12:08 BUILDING INSULATION INSTALLER.MDOT respirations Mental status Awake,Calm 09/08/25 12:08 BUILDING INSULATION INSTALLER.MDOT nausea No 09/08/25 12:08 BUILDING INSULATION INSTALLER.MDOT Vomiting No 09/08/25 12:08 BUILDING INSULATION INSTALLER.MDOT Anesthesia Postop Eval I: Fluid Summary Crystalloid volume administer 600 09/08/25 12:08 BUILDING INSULATION INSTALLER.MDOT (ml) Colloids volume administered ( ml) Blood Product volume administered (ml) Total IV fluid infused 600 09/08/25 12:08 BUILDING INSULATION INSTALLER.MDOT Anesthesia Postop Eval I: Summary Notes Anesthesia Complication No 09/08/25 12:08 BUILDING INSULATION INSTALLER.MDOT Anesthesia Complication Comment: Post-operative progress note Anesthesia: Postop Eval II Evaluation Mental status: Awake and Calm Pain Level: 0 nausea: No Vomiting: No Complications Anesthesia Complication: No
--- NOTE | 2025-09-08 20:29 | PCM.POSTANE2 ---
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 Spontaneous unlabored Yes 09/08/25 12:08 BACK SHOE CUTTER.MDOT respirations Mental status Awake,Calm 09/08/25 12:08 BACK SHOE CUTTER.MDOT nausea No 09/08/25 12:08 BACK SHOE CUTTER.MDOT Vomiting No 09/08/25 12:08 BACK SHOE CUTTER.MDOT Anesthesia Postop Eval I: Fluid Summary Crystalloid volume administer 600 09/08/25 12:08 BACK SHOE CUTTER.MDOT (ml) Colloids volume administered ( ml) Blood Product volume administered (ml) Total IV fluid infused 600 09/08/25 12:08 BACK SHOE CUTTER.MDOT Anesthesia Postop Eval I: Summary Notes Anesthesia Complication No 09/08/25 12:08 BACK SHOE CUTTER.MDOT Anesthesia Complication Comment: Post-operative progress note Anesthesia: Postop Eval II Evaluation Mental status: Awake and Calm Pain Level: 0 nausea: No Vomiting: No Complications Anesthesia Complication: No
== END 2025-09-08 13:10 | disposition home or self-care (01) ==
LOC: EN 09:05 → AC 09:06
PROVIDERS: PCP Family Medicine; Referring Provider Family Medicine; Visit Provider Surgery
PROC: 0DJD8ZZ Inspection of Lower Intestinal Tract, Via Natural or Artificial Opening Endoscopic (ICD-10-PCS; CPT 45378; principal; 2025-09-08 10:25)
DX: K21.9 Gastro-esophageal reflux disease without esophagitis (principal); E11.9 Type 2 diabetes mellitus without complications; K31.89 Other diseases of stomach and duodenum; K22.89 Other specified disease of esophagus; Z79.899 Other long term (current) drug therapy; K57.30 Diverticulosis of large intestine without perforation or abscess without bleeding; R10.32 Left lower quadrant pain; E78.00 Pure hypercholesterolemia, unspecified; N40.0 Benign prostatic hyperplasia without lower urinary tract symptoms; Z96.659 Presence of unspecified artificial knee joint; K62.1 Rectal polyp; K63.5 Polyp of colon
CPT/HCPCS: 45380; 43239; 88305; 88342; J2405